=== PATIENT | male | born 1970 | race Caucasian/White ===

== ENCOUNTER 2017-06-05 15:00 | Emergency (ER) | payer OTHER ==
[2017-06-05 15:19] VITALS: BP 137/93; PULSE 77; TEMP 98; BMI 30.4
--- NOTE | 2017-06-05 16:08 | PDOC ---
History of Present Illness - General Chief Complaint: Lightheaded Stated Complaint: SENT FOR EVALUATION OF BALANCE BEING OFF FOR 2 WE Time Seen by Provider: 06/05/17 15:48 Past History - Past Medical History Allergies/Adverse Reactions: Allergies Allergy/AdvReac Type Severity Reaction Status Date / Time No Known Allergies Allergy Verified 06/05/17 15:03 Home Medications: Ambulatory Orders Aspirin [Aspirin EC] 81 mg PO DAILY 03/13/14 Atorvastatin Ca [Lipitor] 20 mg PO HS #0 tablet 03/15/14 CVA: Yes (3 YEARS AGO AFTER A HIP REPLACEMENT) - Psycho/Social/Smoking Cessation Hx Anxiety: No Suicidal Ideation: No Smoking History: Never smoked Have you smoked in the past 12 months: No Information on smoking cessation initiated: No Hx Alcohol Use: Yes Drug/Substance Use Hx: No (SOCIAL) Substance Use Type: Alcohol Hx Substance Use Treatment: No Review of Systems - Review of Systems Comments:: 06/05/17 16:55 GENERAL/CONSTITUTIONAL: No fever or chills. No weakness. HEAD, EYES, EARS, NOSE AND THROAT: No change in vision. No ear pain or discharge. No sore throat. CARDIOVASCULAR: No chest pain or shortness of breath RESPIRATORY: No cough, wheezing, or hemoptysis. GASTROINTESTINAL: No nausea, vomiting, diarrhea or constipation. GENITOURINARY: No dysuria, frequency, or change in urination. MUSCULOSKELETAL: No joint or muscle swelling or pain. No neck or back pain. SKIN: No rash NEUROLOGIC: +Feels like he drifts to the R (sometimes) when he walks. No headache, vertigo, loss of consciousness, or change in strength/sensation. ENDOCRINE: No increased thirst. No abnormal weight change HEMATOLOGIC/LYMPHATIC: No anemia, easy bleeding, or history of blood clots. ALLERGIC/IMMUNOLOGIC: No hives or skin allergy. *Physical Exam - Vital Signs Last Vital Signs Temp Pulse Resp BP Pulse Ox 98 F 77 16 137/93 99 06/05/17 15:02 06/05/17 15:02 06/05/17 15:02 06/05/17 15:02 06/05/17 15:02 - Physical Exam Comments: 06/05/17 16:56 GENERAL: Awake, alert, and fully oriented, in no acute distress HEAD: No signs of trauma, normocephalic, atraumatic EYES: PERRLA, EOMI, sclera anicteric, conjunctiva clear ENT: Auricles normal inspection, hearing grossly normal, nares patent, oropharynx clear without exudates. Moist mucosa NECK: Normal ROM, supple, no lymphadenopathy, JVD, or masses LUNGS: No distress, speaks full sentences, clear to auscultation bilaterally HEART: Regular rate and rhythm, normal S1 and S2, no murmurs, rubs or gallops, peripheral pulses normal and equal bilaterally. ABDOMEN: Soft, nontender, normoactive bowel sounds. No guarding, no rebound. No masses EXTREMITIES: Normal inspection, Normal range of motion, no edema. No clubbing or cyanosis. NEUROLOGICAL: +Nystagmus noted with eyes moving in both directions. Negative jennifer -hallpike maneuvers. Cranial nerves II through XII grossly intact. Normal speech, normal gait, no focal sensorimotor deficits SKIN: Warm, Dry, normal turgor, no rashes or lesions noted. Medical Decision Making - Medical Decision Making 06/05/17 16:55 Patient experiencing several week history of feeling like he is leaning to the R when he walks. Denies any double vision, change in sensation/strength, or any other symptoms. Nystagmus noted with eye movement but no further symptoms noted. Suspect vertigo is the etiology of these symptoms. Head CT negative for acute findings. Will instruct to f/u with neurology and PCP outpatient. *DC/Admit/Observation/Transfer Diagnosis at time of Disposition: Vertigo - Discharge Dispostion Disposition: HOME Condition at time of disposition: Stable - Referrals Referrals: Tam Jean MD [Staff Physician] - - Patient Instructions Printed Discharge Instructions: DI for Vertigo Additional Instructions: Please return if any exacerbation of symptoms or other concerning changes. - Attestations Physician Attestion: 06/05/17 16:59 I, Dr. Shawn Smalls, attest that this document has been prepared under my direction and personally reviewed by me in its entirety. I further attest, that it accurately reflects all work, treatment, procedures and medical decision -making performed by me.
--- NOTE | 2017-06-05 16:56 | PDOC ---
Attending Attestation - Resident Resident Name: Shawn Smalls - ED Attending Attestation I have performed the following: I have examined & evaluated the patient, The case was reviewed & discussed with the resident, I agree w/resident's findings & plan, Exceptions are as noted - HPI HPI: 06/05/17 16:54 Agree with the resident's HPI as documented in the electronic medical record. - Physicial Exam PE: 06/05/17 16:54 Agree with the resident's physical examination as documented in the electronic medical record. - Medical Decision Making 06/05/17 16:54 46-year-old male with history of CVA in 2013 presents the emergency department today as referred from an urgent care center for evaluation of "feeling off balance "for the past 2-3 weeks; this is been intermittent and the patient is currently asymptomatic. All other review of systems is negative. The patient decided to get seen today because he was sick and tired of this intermittent feeling. Differential diagnosis includes but is not limited to: TIA, CVA, vertigo. Plan: 1. CT head 2. Observe and reevaluate Addendum: CT head is negative. I will discharge home and follow-up with primary care physician with neuro consult. I've advised the patient to return to the emergency department if his symptoms persist, worsen, or new symptoms arise.
== END 2017-06-05 17:10 | disposition home or self-care (01) ==
LOC: FER 15:00
DX: R42 Dizziness and giddiness (principal); Z86.73 Personal history of transient ischemic attack (TIA), and cerebral infarction without residual deficits
CPT/HCPCS: 70450-TC; 99281-25

== ENCOUNTER 2017-07-24 08:54 | Emergency (ER) | payer OTHER ==
[2017-07-24 09:01] VITALS: BP 160/94; TEMP 98.2; BMI 29.6
[2017-07-24] MEDS ORDERED: SODIUM CHLORIDE 0.9% 1000 ML INFUS.BAG IV ONE (09:04)
--- NOTE | 2017-07-24 09:12 | PDOC ---
History of Present Illness - General Chief Complaint: Pain Stated Complaint: abd pain Time Seen by Provider: 07/24/17 09:03 History Source: Patient Exam Limitations: No Limitations - History of Present Illness Initial Comments: 07/24/17 09:07 46 yo male with h/o HLD here with 4 days of loose watery diarrhea. pt reports 3 - 4 bm/ day. all watery, nonbloodyl. no significant recent travel or camping. no recent antiobiotic use. non bloody. no abd pain, mild cramps when has to stool. decreased appetite, but denies nausea, or vomiting. no fever. no other moderating factors. here today due to feeling lightheaded. Past History - Past Medical History Allergies/Adverse Reactions: Allergies Allergy/AdvReac Type Severity Reaction Status Date / Time No Known Allergies Allergy Verified 07/24/17 08:55 Home Medications: Ambulatory Orders Aspirin [Aspirin EC] 81 mg PO DAILY 03/13/14 Atorvastatin Ca [Lipitor] 20 mg PO HS #0 tablet 03/15/14 Potassium Chloride 20 meq PO BID #4 tablet.er 07/24/17 CVA: Yes (after hip replacement no deficits) - Suicide/Smoking/Psychosocial Hx Smoking History: Never smoked Have you smoked in the past 12 months: No Information on smoking cessation initiated: No Hx Alcohol Use: Yes (weekly) Drug/Substance Use Hx: No Substance Use Type: Alcohol Hx Substance Use Treatment: No Review of Systems - Review of Systems Constitutional: No: Chills, Diaphoresis, Fever Respiratory: No: Orthopnea Cardiac (ROS): No: Chest Pain ABD/GI: Yes: Diarrhea, Poor Appetite, Abdominal cramping. No: Nausea, Vomiting Musculoskeletal: No: Back Pain, Gout Integumentary: No: Bruising, Change in Color Neurological: No: Headache All Other Systems: Reviewed and Negative *Physical Exam - Vital Signs Last Vital Signs Temp Pulse Resp BP Pulse Ox 98.2 F 113 H 20 160/94 97 07/24/17 08:54 07/24/17 08:54 07/24/17 08:54 07/24/17 08:54 07/24/17 08:54 - Physical Exam General Appearance: Yes: Nourished, Appropriately Dressed HEENT: positive: Normal ENT Inspection Neck: positive: Trachea midline Respiratory/Chest: positive: Lungs Clear, Normal Breath Sounds Cardiovascular: positive: Regular Rhythm, Regular Rate, S1, S2. negative: Edema Gastrointestinal/Abdominal: positive: Normal Bowel Sounds, Flat, Soft. negative : Tender Musculoskeletal: positive: Normal Inspection. negative: CVA Tenderness Extremity: positive: Normal Capillary Refill, Normal Inspection, Normal Range of Motion Integumentary: positive: Normal Color, Dry, Warm Neurologic: positive: Fully Oriented, Alert, Normal Mood/Affect, Normal Response , Other (gait normal) Heart Score/ECG Review #1 General ECG Interpretation: Sinus Rhythm, Normal Rate (82), Normal Intervals, No acute ischemic changes ED Treatment Course - LABORATORY CBC & Chemistry Diagram: 07/24/17 09:25 07/24/17 09:25 Medical Decision Making - Medical Decision Making 07/24/17 09:10 46 yo M with ho prior cva and hld, here with decr appetite and diarrhea x 4 days. nontender abd exam. differential: pancreatitis, colitis, enteritis, viral ge, dehydration, electrolyte abnormality. plan iv hydration labs lipase reassess. likely dc after hydrated with outpatient followup. 07/24/17 09:58 pt electrolytes and labs normal. dc with referral for GI. and pcp followup. 07/24/17 15:45 repeat potassium after 40 meq po and 20 meq ivpb. was 3.1 given rx for 40 meq potassium to take tomrrow am and evening. and follow up with pcp and gastroenterology *DC/Admit/Observation/Transfer Diagnosis at time of Disposition: Enteritis, Hypokalemia - Discharge Dispostion Disposition: HOME Condition at time of disposition: Improved Admit: No - Prescriptions Prescriptions: Potassium Chloride 20 meq PO BID #4 tablet.er - Referrals Referrals: Avtar Buitrago MD [Staff Physician] - - Patient Instructions Printed Discharge Instructions: DI for Viral Gastroenteritis -- Adult Additional Instructions: drink plenty of fluids. you can use over the counter antacid like pepcid to help with burning or acid in your stomach. you can also try peptobismol to alleviate pain and symptoms related to diarrhea. all of your labs today are normal. should symptoms last beyond 10 days, you should follow up with your primary doctor. you can also follow up with a gear keeper. see referral information for Dr Buitrago, call to schedule as needed. you should take potassium chloried 20 meq. take 2 tablets twice daily tomorrow. prescription has been faxed to your pharmacy. return for any problems or concerns.
[2017-07-24 09:34] LABS: MCH 31.7 pg (25.7-33.7); MCHC 33.7 g/dl (32.0-35.9); MEAN CELL VOLUME 94.1 fl (80-96); MEAN PLT VOLUME 6.9 fl (7.5-11.1); PLATELET COUNT 246 K/MM3 (134-434); RDW 11.8 % (11.9-15.9); WHITE BLOOD COUNT 9.7 K/mm3 (4.0-10.8)
[2017-07-24 10:01] LABS: ALK PHOS 139 U/L (32-92); ANION GAP 10 (8-16); BILIRUBIN,TOTAL 1.6 mg/dl (0.2-1.0); CALCIUM 8.3 mg/dl (8.4-10.2); CO2 25 mmol/L (22-28); CREATININE 0.7 mg/dl (0.6-1.3); GLUCOSE,RANDOM 142 mg/dl (74-106); SGOT/AST 58 U/L (10-42); SGPT/ALT 79 U/L (10-40); TOT PROT 6.8 g/dl (6.4-8.3)
[2017-07-24] MEDS ORDERED: POTASSIUM CHLORIDE 20 MEQ PREMIX IVPB 100 ML IVPB ONE (10:26)
[2017-07-24] MEDS ORDERED: POTASSIUM CHLORIDE TABS 20 MEQ TABLET.ER (FP) PO ONE ×2 (10:26)
[2017-07-24] MEDS ORDERED: KCL 10 MEQ IVPB 200 ML IVPB ONE (10:27)
[2017-07-24 11:03] LABS: PLATELET ESTIMATE ADEQUATE (NORMAL)
[2017-07-24 12:51] LABS: ANION GAP 11 (8-16); CALCIUM 8.3 mg/dl (8.4-10.2); CO2 24 mmol/L (22-28); CREATININE 0.7 mg/dl (0.6-1.3); GLUCOSE,RANDOM 138 mg/dl (74-106)
[2017-07-24 15:23] LABS: ANION GAP 5 (8-16); CALCIUM 7.9 mg/dl (8.4-10.2); CO2 28 mmol/L (22-28); CREATININE 0.7 mg/dl (0.6-1.3); GLUCOSE,RANDOM 118 mg/dl (74-106)
[2017-07-24 15:51] VITALS: PULSE 83
--- NOTE | 2017-07-24 20:41 | EKG ---
Test Reason : Blood Pressure : / mmHG Vent. Rate : 082 BPM Atrial Rate : 082 BPM P-R Int : 152 ms QRS Dur : 098 ms QT Int : 380 ms P-R-T Axes : -11 -21 -04 degrees QTc Int : 443 ms POSSIBLE ECTOPIC ATRIAL RHYTHM NONSPECIFIC T WAVE ABNORMALITY NO PREVIOUS ECGS AVAILABLE Confirmed by JUWAN LAMB, DEMETRIS ([id number]) on 07/24/2017 8:41:12 PM Referred By: NENITA Confirmed By:DEMETRIS ECHEVERRIA MD
== END 2017-07-24 16:02 | disposition home or self-care (01) ==
LOC: FER 08:54
PROC: 3E033GC Introduction of Other Therapeutic Substance into Peripheral Vein, Percutaneous Approach (ICD-10-PCS; principal; 2017-07-24)
PROC: 3E0337Z Introduction of Electrolytic and Water Balance Substance into Peripheral Vein, Percutaneous Approach (ICD-10-PCS; 2017-07-24)
DX: K52.9 Noninfective gastroenteritis and colitis, unspecified (principal); E87.6 Hypokalemia; Z86.73 Personal history of transient ischemic attack (TIA), and cerebral infarction without residual deficits
CPT/HCPCS: 36415; 80048; 80053; 83690; 83735; 85025; 93005; 99283-25